=== PATIENT | female | born 1985 | race Caucasian/White ===

== ENCOUNTER → 2016-12-29 | Outpatient (CLI) | payer BC ==
--- NOTE | 2016-12-30 00:07 | DI ---
US PELVIC-TRANSVAGINAL,12/29/2016 2:55 PM: Clinical History: Menometrorrhagia. Previous Exam: None available. Findings: Multiple transvaginal grayscale and color Doppler sonographic images are obtained through the pelvis, and demonstrate a normal-appearing uterus measuring 7.1 x 4.5 x 5.8 cm with an endometrial stripe me asuring 6 mm. The right ovary measures 2.1 x 1.0 x 2.1 cm with a few maturing follicles. The left ovary measures 2.7 x 2.0 x 2.9 cm containing multiple maturing follicles. Doppler flow is preserved. There is no free fluid Impression: Normal pelvic ultrasound.
== END ==
LOC: US 14:50
PROVIDERS: ATTEND Nurse Practitioner Family
DX: N92.1 Excessive and frequent menstruation with irregular cycle (principal)
CPT/HCPCS: 76830

== ENCOUNTER 2018-10-02 17:26 | Inpatient (IN) ==
[2018-10-02] MEDS ORDERED: diphenhydrAMINE 50 MG/1 ML VIAL IVP PRN (17:44)
[2018-10-02] MEDS ORDERED: METHYLERGONOVINE MALEATE 0.2 MG/1 ML VIAL IM PRN (17:44)
[2018-10-02] MEDS ORDERED: LIDOCAINE W/ SODIUM BICARB 0.5 ML SYR SUBD PRN (17:44)
[2018-10-02] MEDS ORDERED: CITRIC ACID/SODIUM CITRATE 30 ML CUP PO PRN (17:44)
[2018-10-02] MEDS ORDERED: NALOXONE 0.4 MG/1 ML VIAL IVP PRN (17:44)
[2018-10-02] MEDS ORDERED: Naloxone Inj 0.01 MG in Sodium Chloride 0.9% vial 1 ML IVP PRN (17:44)
[2018-10-02] MEDS ORDERED: CALCIUM CARBONATE 500 MG (TUMS) CHEWABLE TABLET PO PRN (17:44)
[2018-10-02] MEDS ORDERED: fentaNYL Inj 100 MCG/2 ML VIAL IV PRN (17:44)
[2018-10-02] MEDS ORDERED: Lidocaine 1% 10 MG/ML - 20 ML VIAL SUBCUT PRN (17:44)
[2018-10-02] MEDS ORDERED: FAMOTIDINE 20 MG/2 ML VIAL IVP PRN ×2 (17:44)
[2018-10-02] MEDS ORDERED: ePHEDrine Inj 50 MG/ML AMP IVP PRN (17:44)
[2018-10-02] MEDS ORDERED: TERBUTALINE SULFATE 1 MG/1 ML SDV SUBCUT PRN (17:44)
[2018-10-02] MEDS ORDERED: BUTORPHANOL TARTRATE 2 MG/1 ML VIAL IVP PRN (17:44)
[2018-10-02] MEDS ORDERED: MISOPROSTOL 200 MCG TABLET RECTAL PRN (17:44)
[2018-10-02] MEDS ORDERED: CefOXitin Inj 2 GM in Sodium Chloride 0.9% 100 ML IV PRN (17:44)
[2018-10-02] MEDS ORDERED: Phenylephrine Inj 50 MCG in Sodium Chloride 0.9% vial 0.5 ML IVP PRN (17:44)
[2018-10-02] MEDS ORDERED: Metoclopramide Inj 10 MG/2 ML VIAL IV PRN (17:44)
[2018-10-02] MEDS ORDERED: LIDOCAINE HCL 2 % 10 ML JELLY URO-JECT TOPICAL PRN (17:44)
[2018-10-02] MEDS ORDERED: Carboprost Inj 250 MCG/ML AMP IM PRN (17:44)
[2018-10-02] MEDS ORDERED: OXYTOCIN 10 UNIT/1 ML IM PRN (17:44)
[2018-10-02] MEDS ORDERED: Nalbuphine Inj 20 MG/ML Ampule IVP PRN (17:44)
[2018-10-02] MEDS ORDERED: Lactated Ringers-OB Dept 1,000 ML PRIMARY IV SCH (17:45)
[2018-10-02] MEDS ORDERED: Oxytocin 20 Units + LR 20 UNIT/1,000 ML BAG IV SCH (17:45)
[2018-10-02 19:33] LABS: Hematocrit [HCT] 37.2 % (37.0-47.0); Hemoglobin [HGB] 12.5 g/dL (12.0-16.0); MEAN CORPUSCULAR HEMOGLOBIN 32.6 PG (27-31); MEAN CORPUSCULAR HGB CONC 33.6 g/dL (33-37); MEAN CORPUSCULAR VOLUME 96.9 FL (81-99); MEAN PLATELET VOLUME 13.4 FL (7.4-12.2); RED BLOOD COUNT 3.84 10^6/uL (4.20-5.40)
[2018-10-02] MEDS: HYDROcodone-APAP 5 MG -325 MG TABLET PO PRN (23:05)
[2018-10-03] MEDS: HYDROcodone-APAP 5 MG -325 MG TABLET PO PRN (03:10)
[2018-10-03] MEDS: Lactated Ringers-OB Dept 1,000 ML PRIMARY IV SCH ×2 (07:10→11:27)
[2018-10-03] MEDS ORDERED: Fent/Bupiv 2mcg/0.0625% Epid 250 ML ONE (07:37)
[2018-10-03] MEDS ORDERED: Oxytocin 20 Units + LR 20 UNIT/1,000 ML BAG IV SCH ×2 (08:30→15:40)
[2018-10-03] MEDS: ONDANSETRON 4 MG/2 ML VIAL IVP PRN ×2 (09:56→13:59)
--- NOTE | 2018-10-03 10:09 | CRNA.PROGR ---
Anesthesia Time - Procedure/Recovery Time Start Date: 10/03/18 End Date: 10/03/18 Anesthesia : Time In: 07:45 Anesthesia : Time Out: 08:30 Anesthesia : Total Time: 45 - Total Anesthesia Time Total Anesthesia Time (minutes): 45 - Other Weight: 79.379 kg Height: 5 ft 10 in Body Mass Index (BMI): 25.1 Physical Status: P2 Obstetrics: Planned vaginal delivery w/ neuraxial labor anesthesia/analog
--- NOTE | 2018-10-03 10:09 | CRNA.PROCE ---
Central Neuraxis Block Placemt - - Safety Measures: Time Out Taken, Site Verified - - Type of Block: Epidural Reason for Block: Analgesia Moniters Used During Block: SPO2, NIBP Positioning: Sitting Skin Prep Used: Betadine Skin Infiltration - Enter Amount Used in Comment Field: 1% Xylocaine (mL): Yes (wheal) Introducer User: 18 Gauge Paulo Local Anesthetic - Enter Amount Used in Comment Field: 5.0 % Xylocaine with Dextrose (ml): Yes (5ml Neg) Number of Centimeters Catheter Threaded: 4 Bioclusive Dressing Applied: Yes Anesthesia Time - Other Weight: 79.379 kg Height: 5 ft 10 in Body Mass Index (BMI): 25.1
[2018-10-03] MEDS ORDERED: fentaNYL 2 MCG/BUPIVACAINE 0.0625%/NS 0.9% 250 ML BAG EPIDURAL SCH (10:15)
[2018-10-03] MEDS ORDERED: PROMETHAZINE 25 MG/1 ML VIAL IM ONE (14:27)
--- NOTE | 2018-10-03 15:18 | OB.DEL.SUM ---
Delivery Note Delivery Summary: Pt is a 33 yo G4 now P2 at 38 1/7 weeks by first trimester u/s who presented yesterday with latent labor. Her cervix was 5-6/80/-1 in the office. She was admitted for observation overno. This morning, her cervix was 7-8, soft and very stretchy. She had an epidural placed for analgesia. Amniotomy was attempted, with minimal fluid return. Pitocin augmentation was started at 2 mU. The pt's contractions picked up considerably with the pitocin and a second amniotomy at 1330. At approximately 1430, she was complete and +1 station. She pushed over 3-4 contractions and delivered a viable male , in the JANETH presentation with a hand presentation by the baby's face. Shoulders were delivered without difficulty. No nuchal cord was noted. The baby's nose and mouth were suctioned with the bulb suction and he was dried and stimulated. He was placed on mom's chest. Time of delivery was 1440. Cord clamping was delayed x 45 seconds. Cord blood and cord gases were obtained for analysis. The placenta delivered spontaneously and intact a short time later. There was a 3 vessel cord. 20 mU of pitocin were infused. The vagina and perineum were examined and a small, first degree perineal laceration was noted and repaired in the normal fashion with 3-0 vicryl rapide suture. There was excellent hemostasis. Baby lior ghed 8#8.7 oz and was 20 inches long. Apgars were 8 at 1 minute and 10 at 5 minutes. EBL 300 cc. Both mom and baby tolerated delivery well and are in stable condition at this time.
[2018-10-03] MEDS ORDERED: ONDANSETRON 4 MG/2 ML VIAL IVP PRN (15:40)
[2018-10-03] MEDS ORDERED: diphenhydrAMINE 25 MG CAPSULE PO PRN (15:40)
[2018-10-03] MEDS ORDERED: DIPH,PERTUSS,TET(ADACEL) VAC/PF 0.5 ML (Tdap) IM ONE (15:40)
[2018-10-03] MEDS ORDERED: Nalbuphine Inj 20 MG/ML Ampule IVP PRN (15:40)
[2018-10-03] MEDS ORDERED: Ondansetron ODT Tab 4 MG TAB PO PRN (15:40)
[2018-10-03] MEDS ORDERED: LIDOCAINE HCL 2 % 10 ML JELLY URO-JECT TOPICAL PRN (15:40)
[2018-10-03] MEDS ORDERED: BENZOCAINE/MENTHOL SPRAY 56 GM BOTTLE TOPICAL PRN (15:40)
[2018-10-03] MEDS ORDERED: diphenhydrAMINE 50 MG/1 ML VIAL IVP PRN (15:40)
[2018-10-03] MEDS ORDERED: CALCIUM CARBONATE 500 MG (TUMS) CHEWABLE TABLET PO PRN (15:40)
[2018-10-03] MEDS ORDERED: LANOLIN HPA 40 GM TUBE TOPICAL PRN (15:40)
[2018-10-03] MEDS ORDERED: GLYCERIN/WITCH HAZEL 1 BOX TOPICAL PRN (15:40)
[2018-10-03] MEDS ORDERED: ACETAMINOPHEN 325 MG TABLET PO PRN (15:40)
[2018-10-03] MEDS ORDERED: MMR VACCINE 12500 UNIT/0.5 ML SUBCUT ONE (15:40)
[2018-10-03] MEDS: IBUPROFEN 800 MG TABLET PO PRN (20:46)
[2018-10-03] MEDS: DOCUSATE 100 MG CAPSULE PO SCH (22:30)
[2018-10-04] MEDS: HYDROcodone-APAP 5 MG -325 MG TABLET PO PRN ×3 (03:16→18:00)
[2018-10-04] MEDS: IBUPROFEN 800 MG TABLET PO PRN ×3 (04:46→20:40)
[2018-10-04] MEDS: Lactated Ringers-OB Dept 1,000 ML PRIMARY IV SCH (06:21)
[2018-10-04 07:01] LABS: Hematocrit [HCT] 33.9 % (37.0-47.0); Hemoglobin [HGB] 11.1 g/dL (12.0-16.0); MEAN CORPUSCULAR HEMOGLOBIN 32.2 PG (27-31); MEAN CORPUSCULAR HGB CONC 32.7 g/dL (33-37); MEAN CORPUSCULAR VOLUME 98.3 FL (81-99); MEAN PLATELET VOLUME 12.9 FL (7.4-12.2); RED BLOOD COUNT 3.45 10^6/uL (4.20-5.40)
[2018-10-04] MEDS: Prenatal Multivitamin Tab 1 TAB TAB PO SCH (08:31)
[2018-10-04] MEDS: DOCUSATE 100 MG CAPSULE PO SCH ×2 (08:31→20:32)
[2018-10-04] MEDS ORDERED: MMR VACCINE 12500 UNIT/0.5 ML SUBCUT ONE (09:00)
[2018-10-04] MEDS ORDERED: MMR VACCINE 12500 UNIT/0.5 ML ONE (17:39)
[2018-10-05] MEDS: IBUPROFEN 800 MG TABLET PO PRN ×3 (06:13→22:55)
[2018-10-05] MEDS: DOCUSATE 100 MG CAPSULE PO SCH ×2 (08:43→21:19)
[2018-10-05] MEDS: Prenatal Multivitamin Tab 1 TAB TAB PO SCH (08:43)
[2018-10-05 14:03] VITALS: TEMP 98
[2018-10-05 22:20] VITALS: BP 102/49; RESP 18; O2SAT 99
--- NOTE | 2018-10-06 09:58 | OB.PROGRES ---
Subjective Post Day: 1 Pain Management: PO Ramirez Catheter: No Flatus: Yes Lochia Color: Rubra/Red Small 10-25 ml Diet: Regular Feeding Method: Exculsively Ambulating: Yes Objective - General General Appearance: POSITIVE: No Acute Distress, Cooperative - Cardiovacular Cardiovascular Exam: POSITIVE: RRR, No Murmur Edema: +1 Pedal Edema Extremities: Negative Joleen's - Bilaterally - Respiratory Respiratory Exam: POSITIVE: Clear to Auscultation - Bilaterally, Breathing Non Labored Assesstment / Plan (1) Spontaneous vaginal delivery Status: Acute Assessment / Plan: -routine cares. -breast feeding well. -rh positive. -rubella non-immune, received her MMR. -d/c home probably tomorrow; baby is currently on IVF for hypoglycemia, so mom is needing to stay to get assistance with breast feeding to help maintain baby's sugars.
--- NOTE | 2018-10-06 10:10 | DCSUMMARY ---
Hospitalization Summary Admit Date: 10/02/18 Discharge Date: 10/05/18 Primary Diagnosis:: Term latent labor, delivered Delivery Type: Vaginal Hospital Course: Pt was admitted in latent labor at 5-6 cm. She was monitored overnoc. Her cervix was 7-8 cm. An epidural was placed. She was augmented with pitocin and AROM was completed. She delivered a male with no complications. For further details of her delivery, please see delivery note elsewhere in the chart. / Postop Complications: None Complications: developed hypoglycemia unresponsive to feeds and supplementation, an IV was started with D10W and he responded well. Exam - Vitals Vital Signs: Vital Signs Temperature 98 F Temperature Source Oral Pulse Rate [Pulse Oximeter] 78 Pulse Rate 59 Respiratory Rate 18 Blood Pressure [Right Arm] 102/49 Blood Pressure 107/59 Pulse Ox 99 Oxygen Flow Rate RA Oxygen Delivery Method Room Air Height 5 ft 10 in Weight 175 lb - General General Appearance: No Acute Distress, Cooperative - Head Head Exam: Normal Inspection, Normocephalic - Respiratory Respiratory Exam: POSITIVE: Clear to Auscultation - Bilaterally, Breathing Non Labored - Cardiovascular Cardiovascular Exam: POSITIVE: RRR, No Murmur - GI/Abdominal GI/Abdominal Exam: POSITIVE: Normal Bowel Sounds, Non Tender, Non Distended, Soft - Extremities Extremities Exam: POSITIVE: Normal Inspection, Full ROM, Normal Capillary Refill, +1 Edema - Back Back Exam: POSITIVE: Normal Inspection, Full ROM - Neurological Neurological Exam: POSITIVE: Alert, Oriented x 3 - Psychiatric Psychiatric Exam: POSITIVE: Normal Affect, Normal Mood - Integumentary Integumentary Exam: POSITIVE: Normal Color, Warm, Dry Patient Problems - Patient Problem List (1) Spontaneous vaginal delivery Status: Acute Code(s): O80 - Encounter for full-term uncomplicated delivery Category: Medical
== END 2018-10-05 22:40 | disposition home or self-care (01) | DRG 807 ==
LOC: OBIP 17:47
PROVIDERS: ADMIT Family Medicine; ATTEND Family Medicine